=== PATIENT | female | born 1955 | race Caucasian/White ===

== ENCOUNTER 2016-06-04 04:58 | Day surgery (SDC) | payer BC ==
[2016-05-18 08:24] VITALS: BMI 34.0
--- NOTE | 2016-05-18 08:45 | PAT Medication Instructions ---
Service Date May 18, 2016. Current Home Medication List Aripiprazole (Abilify), 5 MG PO QAM Bupropion (Wellbutrin Sr), 150 MG PO QAM Bupropion (Wellbutrin-Xl), 300 MG PO QAM Calcium (Calcium), 600 MG PO BID Cholecalciferol (Vitamin D), 1 TAB PO BID Coenzyme Q10 (Ubidecarenone) (Co Q 10), 100 MG PO QAM Duloxetine Hcl (Cymbalta), 60 MG PO QAM Levothyroxine Sodium (Levothyroxine Sodium), 1 TAB PO HS Metformin Ext Rel (Glucophage Ext Rel), 750 MG PO BID Methylphenidate (Ritalin), 20 MG PO BID Richmond-3 Fatty Acids (Fish Oil), 1 CAP PO QPM Medication Instructions For Your Scheduled Surgery - Hold the following medications 2 weeks prior to surgery: [place]-3 Fatty Acids (Fish Oil), 1 CAP PO QPM Coenzyme Q10 (Ubidecarenone) (Co Q 10), 100 MG PO QAM - Hold the following medications 48 hours prior to surgery: Metformin Ext Rel (Glucophage Ext Rel), 750 MG PO BID - Hold the following medications the morning of surgery: Methylphenidate (Ritalin), 20 MG PO BID Cholecalciferol (Vitamin D), 1 TAB PO BID Calcium (Calcium), 600 MG PO BID - Take the following medications the morning of surgery with a sip of water: Duloxetine Hcl (Cymbalta), 60 MG PO QAM Bupropion (Wellbutrin Sr), 150 MG PO QAM Bupropion (Wellbutrin-Xl), 300 MG PO QAM Aripiprazole (Abilify), 5 MG PO QAM - Take the following medications as scheduled the night before surgery: Methylphenidate (Ritalin), 20 MG PO BID Levothyroxine Sodium (Levothyroxine Sodium), 1 TAB PO HS Cholecalciferol (Vitamin D), 1 TAB PO BID Calcium (Calcium), 600 MG PO BID If you have any questions please call us at [phone] (Agustina Cabezas PA-C ) or [phone] or [phone]
[~2016-06-04] VITALS: Ht 157.5 cm; Wt 84.1 kg
[~2016-06-04 04:58] MED LIST: ABL/5 PO; BUPR-79 PO; BUPRTAB51 PO; CALC600T37 PO; CHOL100010 PO; COEN1CAP17 PO; DULO60CA44 PO; LEVO100T7 PO; METFTAB2 PO; OMEGCAP2 PO; RTL20 PO
[2016-06-04 05:44] VITALS: BP 121/72; PULSE 78; TEMP 36.8; O2SAT 98; Ht 157.5 cm; Wt 84.1 kg
[2016-06-04] MEDS ORDERED: LACTATED RINGER'S 1000ML 1,000 ML IV SCH (06:00)
[2016-06-04] MEDS ORDERED: CEFAZOLIN 2000 MG/60 ML D5W IV SCH (06:00)
[2016-06-04] MEDS ORDERED: LIDOCAINE HCL 1% 20 ML VIAL ONE (06:36)
[2016-06-04] MEDS ORDERED: BUPIVACAINE 0.5 % 5 MG/1 ML MPF 30ML VIAL ONE (06:36)
[2016-06-04] MEDS ORDERED: CEFAZOLIN SOD 1 GM VIAL ONE (06:41)
[2016-06-04] MEDS ORDERED: FENTANYL CITRATE INJ 50 MCG/1 ML 2 ML VIAL ONE ×2 (06:44→07:19)
--- NOTE | 2016-06-04 07:01 | History & Physical Bridge Note ---
H&P Re-Evaluation Bridge Note: I have examined the patient, reviewed the History & Physical and in the interval since the performance of the History & Physical I have noted the following changes of clinical significance: No changes noted
[2016-06-04] MEDS ORDERED: GLYCOPYRROLATE INJ 0.2 MG/ML VIAL ONE (07:21)
[2016-06-04] MEDS ORDERED: NEOSTIGMINE METHYLSULFATE 5 MG/5 ML SYR ONE (07:21)
[2016-06-04] MEDS ORDERED: DEXAMETHASONE SOD INJ 4 MG/ML VIAL ONE (07:21)
[2016-06-04] MEDS ORDERED: ROCURONIUM BROMIDE 10 MG/ML 5 ML VIAL ONE ×2 (07:21→10:11)
[2016-06-04] MEDS ORDERED: PROPOFOL IV EMULSION 10 MG/ML 20 ML VIAL IV ONE ×2 (07:21→08:11)
[2016-06-04] MEDS ORDERED: LIDOCAINE HCL 2% 2 ML VIAL (20MG/ML) ONE (07:21)
[2016-06-04] MEDS ORDERED: ONDANSETRON INJ 2 MG/ML 2 ML VIAL ONE (07:21)
[2016-06-04] MEDS ORDERED: LABETALOL HCL IV 5 MG/ML 20ML IV PRN (07:30)
[2016-06-04] MEDS ORDERED: PHENYLEPHRINE 100MCG/ML 5ML SYR IV PRN (07:30)
[2016-06-04] MEDS ORDERED: HYDROmorphone INJ 2 MG/ML SYR/VIAL IV PRN (07:30)
[2016-06-04] MEDS ORDERED: NALOXONE HCL 0.4 MG/1 ML VIAL/CARP IV PRN (07:30)
[2016-06-04] MEDS ORDERED: ONDANSETRON INJ 2 MG/ML 2 ML VIAL IV PRN ×2 (07:30→09:15)
[2016-06-04] MEDS ORDERED: EpHEDrine SULFATE INJ 50 MG/ML AMP IV PRN (07:30)
[2016-06-04] MEDS ORDERED: ATROPINE SULFATE 0.1 MG/ML 5ML SYR IV PRN (07:30)
[2016-06-04] MEDS ORDERED: MEPERIDINE HCL 25 MG/ML CARP IV PRN (07:30)
[2016-06-04] MEDS ORDERED: FLUMAZENIL 0.1 MG/1 ML 10 ML VIAL IV PRN (07:30)
[2016-06-04] MEDS ORDERED: EpHEDrine SULFATE 50MG/5ML SYR ONE (07:50)
[2016-06-04] MEDS ORDERED: SODIUM CHLORIDE 0.9% 1000ML 1,000 ML IV SCH (09:05)
--- NOTE | 2016-06-04 09:05 | [facility] Post Operative Brief Note ---
Immediate Operative Summary Operative Date Jun 04, 2016. Pre-Operative Diagnosis ventral hernia Post-Operative Diagnosis ventral hernia Procedure(s) Performed Open Ventral Hernia Repair Surgeon Dr. Fredi Hathaway Instructional Design Manager Surgeon(s) Melissa Peacock PA-C Estimated Blood Loss 10ml Findings See dictation Specimens none per surgeon Dr. Fredi Hathaway Drains None Anesthesia General Complication(s) None Disposition Recovery Room / PACU
[2016-06-04] MEDS: FENTANYL CITRATE INJ 50 MCG/1 ML 2 ML VIAL IV PRN ×2 (09:08→09:13)
--- NOTE | 2016-06-04 09:10 | Discharge Instructions ---
Discharge Instructions Date of Service Jun 04, 2016. Admission Reason for Admission: Ventral Hernia Discharge Discharge Diagnosis / Problem: Same Discharge Goals Goal(s): Decrease discomfort Activity Recommendations Activity Limitations: per Instructions/Follow-up section Lifting Limitations: no more than 10 pounds (for 6 weeks) Shower/Bathe: tomorrow (Shower only) ACTIVITY RECOMMENDATIONS: * Walk as much as possible. * No heavy lifting (>10 lbs.) for 6 weeks. SPECIAL CARE INSTRUCTIONS: * Ice to hernia repair site on and off until bedtime tonight. * May shower in 24 hours. Let water run over area and pat dry. * Call the surgeon's office with any questions or concerns - (ex. temperature higher than 101 degrees F, excessive bleeding or pain). MEDICATIONS: Resume previous medications unless instructed otherwise by your surgeon. * Ibuprofen 600 mg every 6 hours with food * Percocet 1 every 4 hours, as needed for pain FOLLOW UP VISIT: If not already scheduled, please call the office to schedule a two week follow- up appointment. Office number . Current Hospital Diet Patient's current hospital diet: Discharge Diet Recommended Diet: Regular Diet Procedures Procedures Performed: Open Ventral Hernia Repair Pending Studies Studies pending at discharge: no Medical Emergencies . Who to Call and When: Medical Emergencies: If at any time you feel your situation is an emergency, please call 911 immediately. . Non-Emergent Contact Non-Emergency issues call your: Primary Care Provider, Surgeon Call Non-Emergent contact if: your pain is worsening, wound has increased redness, wound has increased pain . "Provider Documentation" section prepared by Fredi Hathaway. VTE Core Measure Inpt VTE Proph given/why not?: Treatment not indicated
[2016-06-04] MEDS ORDERED: OXYCODONE/ACETAMINOPHEN 5-325 TAB PO PRN (09:15)
[2016-06-04] MEDS ORDERED: MoRPHine SULFATE 4 MG/ML 1 ML CARP\\VIAL IV PRN (09:15)
[2016-06-04 09:50] VITALS: BP 147/74; PULSE 83; TEMP 36.8; O2SAT 95
--- NOTE | 2016-06-04 09:53 | Anesthesiology Progress Note ---
Anesthesia Post Op Note Date & Time Jun 04, 2016 at 09:54 Vital Signs Pain Intensity: 2 Vital Signs Past 12 Hours Date Time Temp Pulse Resp B/P Pulse Ox O2 Delivery O2 Flow Rate FiO2 06/04/16 09:36 36.5 78 12 06/04/16 09:36 77 12 97 06/04/16 09:35 107/73 06/04/16 09:31 74 9 97 06/04/16 09:31 73 9 06/04/16 09:30 111/66 06/04/16 09:26 72 10 06/04/16 09:26 71 10 97 06/04/16 09:25 106/68 06/04/16 09:21 78 9 06/04/16 09:21 78 9 95 06/04/16 09:20 Nasal Cannula 2 06/04/16 09:20 108/68 06/04/16 09:16 81 10 06/04/16 09:16 81 10 95 06/04/16 09:15 74 06/04/16 09:15 74 16 117/72 93 06/04/16 09:10 83 16 112/69 99 06/04/16 09:10 83 16 06/04/16 09:05 90 20 116/65 94 06/04/16 09:05 91 20 06/04/16 09:03 116/76 06/04/16 09:00 36.8 90 16 116/76 95 Mask 10 06/04/16 05:44 36.8 78 16 121/72 98 Room Air Notes Mental Status: alert / awake / arousable, participated in evaluation Pt Amnestic to Procedure: Yes Nausea / Vomiting: adequately controlled Pain: adequately controlled Airway Patency, RR, SpO2: stable & adequate BP & HR: stable & adequate Hydration State: stable & adequate Anesthetic Complications: no major complications apparent
[2016-06-04 10:16] VITALS: BP 151/77; PULSE 78; TEMP 36.8; O2SAT 96
[2016-06-04 10:50] VITALS: BP 122/56; PULSE 76; TEMP 36.8; O2SAT 93
--- NOTE | 2016-06-04 12:17 | OPERATIVE REPORT ---
DATE OF OPERATION: 06/04/2016 PREOPERATIVE DIAGNOSIS: Ventral hernia. POSTOPERATIVE DIAGNOSIS: Same. PROCEDURE: Repair of ventral hernia. SURGEON: Dr. Hathaway. TRESTLEMAN: Dhara Peacock PA-C. FINDINGS: The patient had a defect that measured 5 x 3.5 cm. There was a large hernia sac that had mushroomed over the anterior surface of the fascia and attached itself. There were no incarcerated contents. There were no other defects identified. TECHNIQUE: The patient had the area of the hernial marked in the preop holding area. She was brought to the operating room, placed on the operating table, given general anesthesia, and the area was prepped and draped in usual sterile fashion. Vertical incision was made from the superior point of her vertical midline scar down to just below the umbilicus, carried down through the subcutaneous tissue. Dissection was performed with cautery for hemostasis. The hernia sac was identified. The sac was then away from the surrounding connective tissue in the subcutaneous space down to the edge of the fascia. I was able to establish the fascial edge on the left side first. I was able to separate the hernia sac away from the fascial edge on that left side and then I was able to undermine the fascia and create a preperitoneal space on that side. I then worked superiorly and inferiorly. As I worked over toward the right side, I did dissect the sac off the anterior surface of the fascia until I could identify the edge of the sac, and in elevating the fascial edge and the hernia sac, the rectus muscle on that side was draped over the sac. There was very little identifiable posterior sheath there. The rectus muscle was peeled off the anterior surface of the peritoneum and retracted anteriorly, and I was able then to establish a retrorectus space in the preperitoneal space. The peritoneum on that side was fairly thin. There were few openings that were created. I then opened the hernia sac and was able to then spread that over the anterior surface of the peritoneum on that side and tack it to the peritoneum to cover any visible bowel. Dissection was then carried laterally on the left and right and then superiorly and inferiorly until there was an undermining for at least 3-4 cm around the entire circumference of the defect. Hemostasis was obtained using cautery. A 12.5 cm Surgimesh was then placed in the retrorectus preperitoneal space and tacked to the undersurface of the fascia using 0 PDS horizontal mattress sutures. The fascial defect was then closed in the midline using a running #1 PDS. The tacking sutures were secured. The subcutaneous tissue was approximated where able using interrupted 2-0 Vicryl. The skin was closed with max. Estimated blood loss was 10 mL. Sponge, needle and instrument counts were correct prior to closure. The patient tolerated the surgical procedure without complication and was transferred to recovery. I attest to the content of the Intraoperative Record and any orders documented therein. Any exceptio ns are noted below.
== END 2016-06-04 11:25 | disposition home or self-care (01) ==
LOC: C.ACU 04:58
PROVIDERS: ATTEND Surgery
DX: K43.9 Ventral hernia without obstruction or gangrene (principal); M19.90 Unspecified osteoarthritis, unspecified site; E11.9 Type 2 diabetes mellitus without complications; E03.9 Hypothyroidism, unspecified; F32.9 Major depressive disorder, single episode, unspecified; Z88.2 Allergy status to sulfonamides; Z98.890 Other specified postprocedural states; Z90.89 Acquired absence of other organs; Z90.710 Acquired absence of both cervix and uterus; Z68.34 Body mass index [BMI] 34.0-34.9, adult; E66.9 Obesity, unspecified; Z85.42 Personal history of malignant neoplasm of other parts of uterus

== ENCOUNTER → 2017-03-29 | Outpatient (CLI) | payer BC | END | disposition home or self-care (01) | LOC: C.CPL 11:01 | PROVIDERS: ATTEND Psychiatry & Neurology Psychiatry | DX: F33.1 Major depressive disorder, recurrent, moderate (principal); Z79.899 Other long term (current) drug therapy ==